=== PATIENT | male | born 1990 | race Caucasian/White ===

== ENCOUNTER → 2017-02-05 | Outpatient (REF) | payer MEDICARE, OTHER, MEDICAID | LOC: M LAB REF 16:28 | PROVIDERS: ATTEND Physician Assistant | DX: D03.72 Melanoma in situ of left lower limb, including hip (principal) ==

== ENCOUNTER → 2017-03-01 | Outpatient (REF) | payer MEDICARE, OTHER, MEDICAID | LOC: M LAB REF 11:28 | PROVIDERS: ATTEND Internal Medicine Hematology & Oncology | DX: C43.9 Malignant melanoma of skin, unspecified (principal) ==

== ENCOUNTER → 2017-05-20 | Outpatient (CLI) | payer MEDICARE ==
[2017-05-20 11:42] LABS: EOS # 0.4 K/mm3 (0.0-0.50); EOS % 7.7 % (0.0-3.0); LARGE UNSTAINED CELL # 0.1 K/mm3 (0.0-0.4); LARGE UNSTAINED CELL % 2.6 % (0.0-4.0); LYMPH # 1.7 K/mm3 (1.5-6.5); LYMPH % 31.8 % (24.0-44.0); MEAN CORPUSCULAR HEMOGLOBIN 31.2 pg (27.0-33.0); MEAN CORPUSCULAR HGB CONC 35.9 g/dl (32.0-36.5); MEAN CORPUSCULAR VOLUME 86.7 fl (80.0-96.0); MONO # 0.4 K/mm3 (0.0-0.8); MONO % 6.9 % (0.0-5.0); NEUTROPHILS # 2.6 K/mm3 (1.8-7.7); PLATELET COUNT, AUTOMATED 199 k/mm3 (150-450); RED CELL DISTRIBUTION WIDTH 12.1 % (11.5-14.5); WHITE BLOOD COUNT 5.2 K/mm3 (4.0-10.0)
[2017-05-20 11:57] LABS: ANION GAP 5 MEQ/L (8-16); BLOOD UREA NITROGEN 9 MG/DL (7-18); CALCIUM LEVEL 8.9 MG/DL (8.5-10.1); CARBON DIOXIDE LEVEL 30 MEQ/L (21-32); CHLORIDE LEVEL 106 MEQ/L (98-107); CREATININE FOR GFR 0.98 MG/DL (0.70-1.30); GLOMERULAR FILTRATION RATE > 60.0 (>60); GLUCOSE, FASTING 91 MG/DL (70-105); POTASSIUM SERUM 4.1 MEQ/L (3.5-5.1); SODIUM LEVEL 141 MEQ/L (136-145)
== END ==
LOC: M LAB 10:33
PROVIDERS: ATTEND Specialist
DX: C43.72 Malignant melanoma of left lower limb, including hip (principal)

== ENCOUNTER → 2017-08-12 | Outpatient (REF) | payer MEDICARE, MEDICAID | LOC: M LAB REF 14:04 | PROVIDERS: ATTEND Physician Assistant | DX: J11.1 Influenza due to unidentified influenza virus with other respiratory manifestations (principal) ==

== ENCOUNTER 2017-09-28 22:21 | Emergency (ER) | payer MEDICARE, MEDICAID ==
[2017-09-28 22:59] LABS: HEMATOCRIT 37.3 % (42.0-52.0); HEMOGLOBIN 13.2 g/dl (14.0-18.0); MEAN CORPUSCULAR HEMOGLOBIN 29.9 pg (27.0-33.0); MEAN CORPUSCULAR HGB CONC 35.4 g/dl (32.0-36.5); MEAN CORPUSCULAR VOLUME 84.4 fl (80.0-96.0); PLATELET COUNT, AUTOMATED 105 10^3/uL (150-450); RED BLOOD COUNT 4.42 10^6/uL (4.30-6.10); RED CELL DISTRIBUTION WIDTH 11.9 % (11.5-14.5)
[2017-09-28] MEDS: AZITHROMYCIN 250 MG TAB PO ×2 (23:19)
== END 2017-09-28 23:31 | disposition home or self-care (01) ==
LOC: M ED 23:31
DX: J40 Bronchitis, not specified as acute or chronic (principal); C43.9 Malignant melanoma of skin, unspecified; J45.909 Unspecified asthma, uncomplicated; Z87.891 Personal history of nicotine dependence; Z79.899 Other long term (current) drug therapy
CPT/HCPCS: 71046

== ENCOUNTER → 2017-09-28 | Outpatient (REF) | payer MEDICARE, MEDICAID | LOC: M LAB REF 11:28 | DX: R50.9 Fever, unspecified (principal) | CPT/HCPCS: 87804 ==

== ENCOUNTER 2018-01-29 22:40 | Emergency (ER) | payer MEDICARE, MEDICAID ==
[2018-01-29] MEDS: IBUPROFEN 600 MG TAB PO (23:30)
[2018-01-29] MEDS: NS 1,000 ML IV (23:46)
[2018-01-29 23:52] LABS: BASO # 0.1 10^3/uL (0.0-0.2); BASO % 0.3 % (0.0-1.0); EOS # 0.1 10^3/uL (0.0-0.50); EOS % 0.6 % (0.0-3.0); HEMOGLOBIN 12.8 g/dl (13.5-17.5); IMMATURE GRANULOCYTE % 0.5 % (0-3.0); LYMPH # 1.1 10^3/uL (1.5-6.5); LYMPH % 7.1 % (24.0-44.0); MEAN CORPUSCULAR HEMOGLOBIN 29.8 pg (27.0-33.0); MEAN CORPUSCULAR HGB CONC 34.6 g/dl (32.0-36.5); MONO # 1.1 10^3/uL (0.0-0.8); MONO % 6.9 % (0.0-5.0); NEUTROPHILS # 13.4 10^3/uL (1.8-7.7); NEUTROPHILS % 84.6 % (36.0-66.0); PLATELET COUNT, AUTOMATED 165 10^3/uL (150-450); RED CELL DISTRIBUTION WIDTH 11.9 % (11.5-14.5); WHITE BLOOD COUNT 15.9 10^3/uL (4.0-10.0)
[2018-01-30 00:17] LABS: ALBUMIN 3.7 GM/DL (3.2-5.2); ALBUMIN/GLOBULIN RATIO 0.97 (1.00-1.93); ALKALINE PHOSPHATASE 118 U/L (45-117); ALT/SGPT 30 U/L (12-78); ANION GAP 7 MEQ/L (8-16); AST/SGOT 21 U/L (7-37); BILIRUBIN,DIRECT 0.1 MG/DL (0.0-0.2); BILIRUBIN,TOTAL 0.3 MG/DL (0.2-1.0); BLOOD UREA NITROGEN 13 MG/DL (7-18); CALCIUM LEVEL 8.3 MG/DL (8.5-10.1); CARBON DIOXIDE LEVEL 24 MEQ/L (21-32); CHLORIDE LEVEL 107 MEQ/L (98-107); CREATININE FOR GFR 1.04 MG/DL (0.70-1.30); GLOMERULAR FILTRATION RATE > 60.0 (>60); GLUCOSE, FASTING 110 MG/DL (70-100); POTASSIUM SERUM 3.6 MEQ/L (3.5-5.1); SODIUM LEVEL 138 MEQ/L (136-145); TOTAL PROTEIN 7.5 GM/DL (6.4-8.2)
[2018-01-30 00:18] LABS: LACTIC ACID SEPSIS PROTOCOL 1.2 MMOL/L (0.4-2.0)
[2018-01-30 01:45] LABS: APPEARANCE, URINE HAZY (CLEAR); BACTERIA, URINE AUTO NEGATIVE (NEGATIVE); BILIRUBIN, URINE AUTO NEGATIVE (NEGATIVE); BLOOD, URINE BLOOD NEGATIVE (NEGATIVE); COLOR, URINE YELLOW (YELLOW); GLUCOSE, URINE (UA) AUTO NEGATIVE (NEGATIVE); KETONE, URINE AUTO NEGATIVE (NEGATIVE); LEUKOCYTE ESTERASE, URINE AUTO NEGATIVE (NEGATIVE); MUCUS, URINE LARGE (NEGATIVE); NITRITE, URINE AUTO NEGATIVE (NEGATIVE); PROTEIN, URINE AUTO 1+ mg/dL (NEGATIVE); RBC, URINE AUTO 4 /HPF (0-3); SPECIFIC GRAVITY URINE AUTO 1.038 (1.002-1.035); SQUAMOUS EPITHELIAL CELL UR AU 0 /HPF (0-6); WBC, URINE AUTO 1 /HPF (0-3)
[2018-01-30] MEDS: CIPROFLOXACIN 500 MG TAB PO (03:00)
== END 2018-01-30 03:05 | disposition home or self-care (01) ==
LOC: M ED 22:40
DX: R50.9 Fever, unspecified (principal); J45.909 Unspecified asthma, uncomplicated; Z79.899 Other long term (current) drug therapy
CPT/HCPCS: 71045

== ENCOUNTER → 2018-02-24 | Outpatient (CLI) | payer MEDICARE, MEDICAID ==
[2018-02-24 09:00] LABS: BASO % 0.7 % (0.0-1.0); EOS # 0.3 10^3/uL (0.0-0.50); EOS % 5.9 % (0.0-3.0); HEMOGLOBIN 13.7 g/dl (13.5-17.5); IMMATURE GRANULOCYTE % 0.2 % (0-3.0); LYMPH # 2.3 10^3/uL (1.5-6.5); LYMPH % 41.3 % (24.0-44.0); MEAN CORPUSCULAR HEMOGLOBIN 29.9 pg (27.0-33.0); MEAN CORPUSCULAR HGB CONC 34.3 g/dl (32.0-36.5); MEAN CORPUSCULAR VOLUME 87.3 fl (80.0-96.0); MONO # 0.7 10^3/uL (0.0-0.8); MONO % 11.8 % (0.0-5.0); NEUTROPHILS # 2.3 10^3/uL (1.8-7.7); NEUTROPHILS % 40.1 % (36.0-66.0); PLATELET COUNT, AUTOMATED 193 10^3/uL (150-450); RED BLOOD COUNT 4.58 10^6/uL (4.30-6.10); WHITE BLOOD COUNT 5.6 10^3/uL (4.0-10.0)
== END ==
LOC: M LAB 08:17
DX: C43.72 Malignant melanoma of left lower limb, including hip (principal)
CPT/HCPCS: 85025

== ENCOUNTER → 2018-04-03 | Outpatient (REF) | payer MEDICARE, MEDICAID ==
[2018-04-03 13:02] LABS: HEMATOCRIT 40.8 % (42.0-52.0); HEMOGLOBIN 13.7 g/dl (13.5-17.5); MEAN CORPUSCULAR HGB CONC 33.6 g/dl (32.0-36.5); MEAN CORPUSCULAR VOLUME 89.5 fl (80.0-96.0); PLATELET COUNT, AUTOMATED 178 10^3/uL (150-450); RED BLOOD COUNT 4.56 10^6/uL (4.30-6.10); RED CELL DISTRIBUTION WIDTH 12.3 % (11.5-14.5); WHITE BLOOD COUNT 5.2 10^3/uL (4.0-10.0)
[2018-04-03 13:14] LABS: TOTAL 25(OH) VITAMIN D 26.3 NG/ML (30.0-100.0)
[2018-04-03 13:23] LABS: ALBUMIN 3.6 GM/DL (3.2-5.2); ALKALINE PHOSPHATASE 137 U/L (45-117); ALT/SGPT 40 U/L (12-78); ANION GAP 6 MEQ/L (8-16); AST/SGOT 26 U/L (7-37); BILIRUBIN,TOTAL 0.2 MG/DL (0.2-1.0); BLOOD UREA NITROGEN 11 MG/DL (7-18); CALCIUM LEVEL 8.4 MG/DL (8.5-10.1); CARBON DIOXIDE LEVEL 27 MEQ/L (21-32); CHLORIDE LEVEL 111 MEQ/L (98-107); CREATININE FOR GFR 0.99 MG/DL (0.70-1.30); FREE T4 0.97 NG/DL (0.76-1.46); GLOMERULAR FILTRATION RATE > 60.0 (>60); GLUCOSE, FASTING 90 MG/DL (70-100); POTASSIUM SERUM 4.2 MEQ/L (3.5-5.1); SODIUM LEVEL 144 MEQ/L (136-145); TOTAL PROTEIN 7.6 GM/DL (6.4-8.2)
[2018-04-04 10:29] LABS: HEPATITIS C VIRUS ABY INDEX 0.3 INDEX (<0.8)
[2018-04-04 10:30] LABS: HIV 1&2 SCREEN CENTAUR NEGATIVE (NEGATIVE)
== END ==
LOC: M SFHCPLAZ 08:37
DX: C43.72 Malignant melanoma of left lower limb, including hip (principal); Z11.59 Encounter for screening for other viral diseases; Z11.4 Encounter for screening for human immunodeficiency virus [HIV]; R74.8 Abnormal levels of other serum enzymes; F32.9 Major depressive disorder, single episode, unspecified; H61.23 Impacted cerumen, bilateral; Z68.33 Body mass index [BMI] 33.0-33.9, adult
CPT/HCPCS: 84443

== ENCOUNTER → 2018-05-05 | Outpatient (REF) | payer MEDICARE, MEDICAID | LOC: M SFHCPLAZ 05-06 11:48 | DX: L02.91 Cutaneous abscess, unspecified (principal) | CPT/HCPCS: 87186 ==

== ENCOUNTER → 2018-11-05 | Outpatient (REF) | payer MEDICARE, MEDICAID ==
[~2018-11-05] MED LIST: ALBU83IN INH; CIPR-249 PO; MEKINIST PO; TAFINLAR PO; ZITHTAB PO
[2018-11-05 12:29] LABS: ALBUMIN 3.9 GM/DL (3.2-5.2); ALT/SGPT 35 U/L (12-78); BILIRUBIN,TOTAL 0.3 MG/DL (0.2-1.0); BLOOD UREA NITROGEN 10 MG/DL (7-18); CALCIUM LEVEL 8.9 MG/DL (8.5-10.1); CARBON DIOXIDE LEVEL 27 MEQ/L (21-32); CHLORIDE LEVEL 106 MEQ/L (98-107); CREATININE FOR GFR 0.98 MG/DL (0.70-1.30); GLOMERULAR FILTRATION RATE > 60.0 (>60); GLUCOSE, FASTING 87 MG/DL (70-100); POTASSIUM SERUM 4.2 MEQ/L (3.5-5.1); SODIUM LEVEL 139 MEQ/L (136-145); TOTAL 25(OH) VITAMIN D 27.9 NG/ML (30.0-100.0); TOTAL PROTEIN 7.6 GM/DL (6.4-8.2)
== END ==
LOC: M SFHCPLAZ 09:45
PROVIDERS: ATTEND Physician Assistant
DX: R74.8 Abnormal levels of other serum enzymes (principal); E55.9 Vitamin D deficiency, unspecified; E66.9 Obesity, unspecified; Z68.35 Body mass index [BMI] 35.0-35.9, adult
CPT/HCPCS: 36415; 80053; 82306; G0463

== ENCOUNTER 2018-11-24 09:11 | Outpatient (RCR) | payer MEDICARE, MEDICAID | END 2018-12-07 | LOC: M PT 09:11 | PROVIDERS: ATTEND Physician Assistant | DX: Z51.89 Encounter for other specified aftercare (principal); R10.32 Left lower quadrant pain ==

== ENCOUNTER 2018-12-23 10:37 | Outpatient (RCR) | payer MEDICARE, MEDICAID | END 2019-01-06 | LOC: M PT 10:37 | PROVIDERS: ATTEND Physician Assistant | DX: R10.32 Left lower quadrant pain (principal) ==

== ENCOUNTER 2019-01-29 08:35 | Emergency (ER) | payer MEDICARE, MEDICAID ==
[~2019-01-29] VITALS: Ht 180.3 cm; Wt 104.2 kg
[2019-01-29] MEDS ORDERED: NS 1,000 ML IV ONE ×2 (09:00→10:00)
[2019-01-29] MEDS ORDERED: MORPHINE 2 MG/ML 1ML SYRINGE (J2270) IV ONE (09:00)
[2019-01-29] MEDS ORDERED: ONDANSETRON 4MG/2ML VIAL (J2405) IV ONE (09:00)
[2019-01-29 09:25] LABS: BASO # 0.1 10^3/uL (0.0-0.2); BASO % 0.9 % (0.0-1.0); EOS # 0.2 10^3/uL (0.0-0.50); EOS % 3.4 % (0.0-3.0); HEMATOCRIT 40.7 % (42.0-52.0); HEMOGLOBIN 13.8 g/dl (13.5-17.5); LYMPH # 1.9 10^3/uL (1.5-6.5); LYMPH % 28.6 % (24.0-44.0); MEAN CORPUSCULAR HEMOGLOBIN 29.7 pg (27.0-33.0); MEAN CORPUSCULAR HGB CONC 33.9 g/dl (32.0-36.5); MEAN CORPUSCULAR VOLUME 87.5 fl (80.0-96.0); MONO # 0.4 10^3/uL (0.0-0.8); MONO % 5.5 % (0.0-5.0); NEUTROPHILS # 4.1 10^3/uL (1.8-7.7); NEUTROPHILS % 61.3 % (36.0-66.0); PLATELET COUNT, AUTOMATED 203 10^3/uL (150-450); RED BLOOD COUNT 4.65 10^6/uL (4.30-6.10); WHITE BLOOD COUNT 6.7 10^3/uL (4.0-10.0)
--- NOTE | 2019-01-29 09:57 | REP ---
Clinical: Right flank pain. Technique: Real time dumont scale ultrasound examination using curved array transducer. Findings: Right kidney measures 12.1 x 6.0 x 6.9 cm with mild hydronephrosis. No nephrolithiasis, renal cystic or mass lesion appreciated. Left kidney measures 10.9 x 4.9 x 6.0 cm without hydronephrosis, cystic or renal mass lesion. 5 mm nonobstructing calculus in the left lower pole cannot be excluded. A complex 2.9 x 2.4 x 2.5 cm cyst/mass is identified superior to the right kidney possibly adrenal adenoma. Impression: 1. Mild right hydronephrosis. 2. 2.9 cm mass superior to the right kidney possibly representing an adrenal lesion. 3. 5 mm nonobstructing left renal calculus. Electronically Signed by Sanket Lovett MD 01/29/2019 09:47 A
[2019-01-29] MEDS ORDERED: TAMSULOSIN 0.4 MG CAP PO ONE (10:00)
[2019-01-29 10:01] LABS: ALBUMIN 3.7 GM/DL (3.2-5.2); ALT/SGPT 36 U/L (12-78); BILIRUBIN,DIRECT < 0.1 MG/DL (0.0-0.2); BILIRUBIN,TOTAL 0.4 MG/DL (0.2-1.0); LIPASE 131 U/L (73-393); TOTAL PROTEIN 8.2 GM/DL (6.4-8.2)
[2019-01-29] MEDS ORDERED: ISOVUE-370 76% 100ML VIAL (Q9967) As Ordered ONE (10:08)
--- NOTE | 2019-01-29 10:54 | REP ---
Clinical: Hydronephrosis. Technique: Axial precontrast, contrast enhanced, and delayed images of the abdomen and pelvis using 100 ml Isovue 370 intravenous contrast material with coronal and sagittal re-formations. Findings: Mild right hydroureteronephrosis with minimal periureteral stranding is appreciated with a 1 mm calculus in the dependent portion of the bladder inseparable from the ureterovesical junction. Clinical correlation is recommended as findings may represent partially obstructing UVJ stone versus recently passed stone. Right kidney along with the left kidney at, left ureter and bladder appear normal. Liver, spleen, pancreas, gallbladder, bilateral adrenal glands are normal. The enteric system is without obstruction or acute inflammatory process. Pelvis demonstrates normal bladder and age appropriate prostate/seminal vesicles. No ascites. No free air. No adenopathy. Abdominal aorta without aneurysm or dissection. Musculoskeletal structures intact. Impression: 1. Mild right-sided obstructive uropathy with 1 mm calculus as described above. Findings suggest acute UVJ obstruction versus recently passed right ureteral stone. Correlation with physical examination recommended. Remainder of the urinary tract system is normal. 2. No further acute abdominopelvic pathology appreciated. Electronically Signed by Sanket Lovett MD 01/29/2019 10:45 A
[2019-01-29] MEDS ORDERED: KETO10TAB PO (11:17)
[2019-01-29] MEDS ORDERED: ONDA4TAB6 PO (11:17)
[2019-01-29 11:28] VITALS: BP 109/59
== END 2019-01-29 11:42 | disposition home or self-care (01) ==
LOC: M ED 08:35
DX: N20.1 Calculus of ureter (principal); R11.2 Nausea with vomiting, unspecified; Z85.820 Personal history of malignant melanoma of skin; F17.200 Nicotine dependence, unspecified, uncomplicated; Z79.899 Other long term (current) drug therapy; Z79.2 Long term (current) use of antibiotics
CPT/HCPCS: 74178; 76775; 80047; 80076; 81001; 83605; 83690; 85025; 96374; 96375; 99284; J2270; J2405; Q9967

== ENCOUNTER → 2021-08-16 | Outpatient (CLI) | payer MEDICARE, MEDICAID ==
[~2021-08-16] MED LIST changes: +KETO10TAB PO; +ONDA4TAB6 PO
--- NOTE | 2021-08-16 13:01 | REP ---
INDICATION: WORSENING PAIN IN THIGH ? DVT VS LYMPHNODE COMPARISON: None. TECHNIQUE: Real time compression and duplex Doppler interrogation of the left lower extremity deep venous system is performed, including the right common femoral vein.Compression of the left peroneal and posterior tibial veins is performed. FINDINGS: The left common femoral, superficial femoral and popliteal veins are fully compressible with transducer pressure and demonstrate normal spontaneous and phasic flow, without evidence of deep venous thrombosis.The right common femoral vein demonstrates no thrombus.The visualized left peroneal and posterior tibial veins demonstrate no thrombus. In the distal left thigh soft tissues there is a solid soft tissue nodule measuring 2.0 x 1.4 x 1.7 centimeters. Two mildly enlarged left inguinal lymph nodes are seen measuring 13 x 6 x 16 millimeters and 16 x 11 x 27 millimeters. IMPRESSION: No evidence of deep venous thrombosis of the left lower extremity femoral popliteal venous system.No thrombus in the visualized left peroneal and posterior tibial veins. In the distal left thigh soft tissues there is a solid soft tissue nodule measuring 2.0 x 1.4 x 1.7 centimeters. Two mildly enlarged left inguinal lymph nodes are seen measuring 13 x 6 x 16 millimeters and 16 x 11 x 27 millimeters. <Electronically signed by Raymond Muñoz > 08/16/21 [id number]
== END ==
LOC: M RAD 12:01
PROVIDERS: ATTEND Internal Medicine Hematology & Oncology
DX: R59.0 Localized enlarged lymph nodes (principal); R22.42 Localized swelling, mass and lump, left lower limb; C43.72 Malignant melanoma of left lower limb, including hip; M79.605 Pain in left leg

== ENCOUNTER → 2021-09-22 | Outpatient (CLI) | payer MEDICARE, MEDICAID ==
[2021-09-22 13:27] LABS: ALBUMIN 2.9 GM/DL (3.2-5.2); ALT/SGPT 219 U/L (12-78); BILIRUBIN,TOTAL 0.2 MG/DL (0.2-1.0); BLOOD UREA NITROGEN 8 MG/DL (7-18); CALCIUM LEVEL 8.6 MG/DL (8.5-10.1); CARBON DIOXIDE LEVEL 28 MEQ/L (21-32); CHLORIDE LEVEL 109 MEQ/L (98-107); CREATININE FOR GFR 0.83 MG/DL (0.70-1.30); GLOMERULAR FILTRATION RATE > 60.0 (>60); GLUCOSE, FASTING 98 MG/DL (70-100); POTASSIUM SERUM 3.9 MEQ/L (3.5-5.1); SODIUM LEVEL 141 MEQ/L (136-145); TOTAL PROTEIN 6.4 GM/DL (6.4-8.2)
== END ==
LOC: M LAB 12:09
PROVIDERS: ATTEND Internal Medicine Hematology & Oncology
DX: C43.72 Malignant melanoma of left lower limb, including hip (principal)

== ENCOUNTER → 2021-10-21 | Outpatient (CLI) | payer MEDICARE ==
[2021-10-21 14:11] LABS: BASO # 0.1 10^3/uL (0.0-0.2); BASO % 0.9 % (0.0-1.0); EOS # 0.3 10^3/uL (0.0-0.5); EOS % 3.9 % (0.0-3.0); HEMATOCRIT 44.7 % (42.0-52.0); HEMOGLOBIN 14.5 g/dl (13.5-17.5); LYMPH # 2.6 10^3/uL (1.5-5.0); LYMPH % 33.5 % (24.0-44.0); MEAN CORPUSCULAR HEMOGLOBIN 28.5 pg (27.0-33.0); MEAN CORPUSCULAR HGB CONC 32.4 g/dl (32.0-36.5); MEAN CORPUSCULAR VOLUME 87.8 fl (80.0-96.0); MONO # 0.6 10^3/uL (0.0-0.8); MONO % 8.3 % (2.0-8.0); NEUTROPHILS # 4.1 10^3/uL (1.5-8.5); NEUTROPHILS % 53.1 % (36.0-66.0); PLATELET COUNT, AUTOMATED 226 10^3/uL (150-450); RED BLOOD COUNT 5.09 10^6/uL (4.30-6.10); WHITE BLOOD COUNT 7.7 10^3/uL (4.0-10.0)
[2021-10-21 14:37] LABS: ALBUMIN 3.3 GM/DL (3.2-5.2); ALT/SGPT 377 U/L (12-78); BILIRUBIN,TOTAL 0.4 MG/DL (0.2-1.0); BLOOD UREA NITROGEN 8 MG/DL (7-18); CALCIUM LEVEL 8.7 MG/DL (8.5-10.1); CARBON DIOXIDE LEVEL 27 MEQ/L (21-32); CHLORIDE LEVEL 109 MEQ/L (98-107); CREATININE FOR GFR 1.07 MG/DL (0.70-1.30); GLOMERULAR FILTRATION RATE > 60.0 (>60); GLUCOSE, FASTING 113 MG/DL (70-100); POTASSIUM SERUM 3.6 MEQ/L (3.5-5.1); SODIUM LEVEL 141 MEQ/L (136-145); TOTAL PROTEIN 7.2 GM/DL (6.4-8.2)
== END ==
LOC: M LAB 13:40
PROVIDERS: ATTEND Nurse Practitioner
DX: C43.72 Malignant melanoma of left lower limb, including hip (principal)

== ENCOUNTER 2021-11-22 10:53 | Emergency (ER) | payer MEDICARE, MEDICAID ==
[~2021-11-22] VITALS: Ht 182.9 cm; Wt 108.6 kg
[2021-11-22] MEDS ORDERED: NS 1,000 ML IV ONE (12:05)
[2021-11-22] MEDS ORDERED: ONDANSETRON 4MG/2ML VIAL IV ONE (12:05)
[2021-11-22] MEDS ORDERED: ONDANSETRON 4MG/2ML VIAL As Ordered ONE (12:08)
[2021-11-22 12:36] LABS: BASO # 0.1 10^3/uL (0.0-0.2); BASO % 0.6 % (0.0-1.0); EOS # 0.2 10^3/uL (0.0-0.5); EOS % 2.8 % (0.0-3.0); HEMATOCRIT 40.9 % (42.0-52.0); HEMOGLOBIN 13.9 g/dl (13.5-17.5); LYMPH # 1.1 10^3/uL (1.5-5.0); LYMPH % 13.6 % (24.0-44.0); MEAN CORPUSCULAR HEMOGLOBIN 28.6 pg (27.0-33.0); MEAN CORPUSCULAR VOLUME 84.2 fl (80.0-96.0); MONO # 0.7 10^3/uL (0.0-0.8); MONO % 8.9 % (2.0-8.0); NEUTROPHILS # 5.7 10^3/uL (1.5-8.5); NEUTROPHILS % 73.8 % (36.0-66.0); PLATELET COUNT, AUTOMATED 212 10^3/uL (150-450); RED BLOOD COUNT 4.86 10^6/uL (4.30-6.10); WHITE BLOOD COUNT 7.8 10^3/uL (4.0-10.0)
[2021-11-22] MEDS ORDERED: OXYC-517 (12:36)
[2021-11-22] MEDS ORDERED: VENTAER INH (12:36)
[2021-11-22] MEDS ORDERED: SERT50TA29 PO (12:36)
[2021-11-22 12:57] LABS: ALBUMIN 3.2 GM/DL (3.2-5.2); ALT/SGPT 41 U/L (12-78); BILIRUBIN,DIRECT 0.1 MG/DL (0.0-0.2); BILIRUBIN,TOTAL 0.6 MG/DL (0.2-1.0); BLOOD UREA NITROGEN 13 MG/DL (7-18); CALCIUM LEVEL 8.6 MG/DL (8.5-10.1); CARBON DIOXIDE LEVEL 26 MEQ/L (21-32); CHLORIDE LEVEL 108 MEQ/L (98-107); CREATININE FOR GFR 0.97 MG/DL (0.70-1.30); GLOMERULAR FILTRATION RATE > 60.0 (>60); GLUCOSE, FASTING 96 MG/DL (70-100); LIPASE 91 U/L (73-393); MAGNESIUM LEVEL 2.1 MG/DL (1.8-2.4); POTASSIUM SERUM 3.9 MEQ/L (3.5-5.1); SODIUM LEVEL 139 MEQ/L (136-145); TOTAL PROTEIN 6.7 GM/DL (6.4-8.2)
[2021-11-22] MEDS ORDERED: PROHANCE 279.3MG/ML 5ML VIAL As Ordered ONE (17:14)
[2021-11-22] MEDS ORDERED: PROHANCE 279.3MG/ML 15ML VIAL As Ordered ONE (17:15)
[2021-11-22 19:42] VITALS: BP 126/77
== END 2021-11-22 20:02 | disposition home or self-care (01) ==
LOC: M ED 10:53
DX: R11.2 Nausea with vomiting, unspecified (principal); R19.7 Diarrhea, unspecified; J45.909 Unspecified asthma, uncomplicated; Z85.820 Personal history of malignant melanoma of skin; Z86.73 Personal history of transient ischemic attack (TIA), and cerebral infarction without residual deficits; Z92.21 Personal history of antineoplastic chemotherapy; F17.210 Nicotine dependence, cigarettes, uncomplicated
CPT/HCPCS: 70450; 70553; 80048; 80076; 83605; 83690; 83735; 85025; 87040; 93005; 93041; 94760; 96361; 96374; 99285; A9576; J2405

== ENCOUNTER → 2022-01-19 | Outpatient (CLI) | payer MEDICARE, MEDICAID ==
[~2022-01-19] MED LIST changes: +OXYC-517; +PROHANCE 279.3MG/ML 15ML VIAL As Ordered ONE; +PROHANCE 279.3MG/ML 5ML VIAL As Ordered ONE; +SERT50TA29 PO; +VENTAER INH
== END ==
LOC: M RAD 08:05
PROVIDERS: ATTEND Internal Medicine Hematology & Oncology
DX: C43.72 Malignant melanoma of left lower limb, including hip (principal); G91.9 Hydrocephalus, unspecified
CPT/HCPCS: 70553; A9576

== ENCOUNTER 2022-07-16 12:09 | Emergency (ER) | payer MEDICARE, MEDICAID ==
[~2022-07-16] VITALS: Ht 182.9 cm; Wt 79.0 kg
[~2022-07-16 12:09] MED LIST changes: +ALBU2.5V10 INH; -ALBU83IN INH; -PROHANCE 279.3MG/ML 15ML VIAL As Ordered ONE; -PROHANCE 279.3MG/ML 5ML VIAL As Ordered ONE
[2022-07-16] MEDS ORDERED: ONDA4TAB6 PO (14:08)
[2022-07-16] MEDS ORDERED: SERT-141 PO (14:12)
[2022-07-16] MEDS ORDERED: METOCLOPRAMIDE INJ 10MG/2ML VIAL (J2765 PER 1) IV ONE (14:55)
[2022-07-16] MEDS ORDERED: NS 1,000 ML IV ONE (14:55)
[2022-07-16 15:48] LABS: BASO % 0.4 % (0.0-1.0); EOS # 0.2 10^3/uL (0.0-0.5); EOS % 6.3 % (0.0-3.0); HEMATOCRIT 39.6 % (42.0-52.0); HEMOGLOBIN 13.1 g/dl (13.5-17.5); MEAN CORPUSCULAR HEMOGLOBIN 28.4 pg (27.0-33.0); MEAN CORPUSCULAR HGB CONC 33.1 g/dl (32.0-36.5); MEAN CORPUSCULAR VOLUME 85.7 fl (80.0-96.0); MONO # 0.3 10^3/uL (0.0-0.8); MONO % 12.5 % (2.0-8.0); NEUTROPHILS # 1.2 10^3/uL (1.5-8.5); NEUTROPHILS % 44.8 % (36.0-66.0); PLATELET COUNT, AUTOMATED 126 10^3/uL (150-450); RED BLOOD COUNT 4.62 10^6/uL (4.30-6.10); WHITE BLOOD COUNT 2.7 10^3/uL (4.0-10.0)
[2022-07-16 16:28] LABS: ALBUMIN 3.7 GM/DL (3.2-5.2); BILIRUBIN,DIRECT 0.2 MG/DL (0.0-0.2); BILIRUBIN,TOTAL 0.6 MG/DL (0.2-1.0); TOTAL PROTEIN 7.4 GM/DL (6.4-8.2)
[2022-07-16] MEDS ORDERED: REGL10TA6 PO (17:03)
[2022-07-16 17:15] VITALS: BP 117/69
== END 2022-07-16 17:17 | disposition home or self-care (01) ==
LOC: M ED 12:09
DX: U07.1 COVID-19 (principal); C43.9 Malignant melanoma of skin, unspecified; J45.909 Unspecified asthma, uncomplicated; Z86.73 Personal history of transient ischemic attack (TIA), and cerebral infarction without residual deficits; R93.0 Abnormal findings on diagnostic imaging of skull and head, not elsewhere classified; Z79.899 Other long term (current) drug therapy
CPT/HCPCS: 70450; 74021; 80047; 80076; 83690; 85025; 87486; 87581; 87633; 87798; 96361; 96374; 99284; J2765

== ENCOUNTER → 2023-12-19 | Outpatient (CLI) | payer MEDICARE, MEDICAID ==
[~2023-12-19] MED LIST changes: +PROHANCE 279.3MG/ML 15ML VIAL As Ordered ONE; +REGL10TA6 PO; +SERT-141 PO
== END ==
LOC: M RAD 14:23
PROVIDERS: ATTEND Internal Medicine Hematology & Oncology
DX: C43.72 Malignant melanoma of left lower limb, including hip (principal); G31.9 Degenerative disease of nervous system, unspecified; J32.0 Chronic maxillary sinusitis
CPT/HCPCS: 70553; A9576

== ENCOUNTER → 2024-01-31 | Outpatient (CLI) | payer MEDICARE, MEDICAID | LOC: M RAD 07:38 | PROVIDERS: ATTEND Internal Medicine Hematology & Oncology | DX: C43.72 Malignant melanoma of left lower limb, including hip (principal); J32.0 Chronic maxillary sinusitis | CPT/HCPCS: 70553; A9576 ==

== ENCOUNTER → 2024-02-18 | Outpatient (CLI) | payer MEDICARE, MEDICAID ==
[~2024-02-18] MED LIST changes: +ONDA-282 PO; -ONDA4TAB6 PO; -PROHANCE 279.3MG/ML 15ML VIAL As Ordered ONE
== END ==
LOC: M CARPUL 11:00
PROVIDERS: ATTEND Internal Medicine Hematology & Oncology
DX: C43.72 Malignant melanoma of left lower limb, including hip (principal); Z79.69 Long term (current) use of other immunomodulators and immunosuppressants; I08.3 Combined rheumatic disorders of mitral, aortic and tricuspid valves

== ENCOUNTER 2024-02-24 18:59 | Emergency (ER) | payer MEDICARE, MEDICAID ==
[~2024-02-24] VITALS: Ht 182.9 cm; Wt 63.6 kg
[2024-02-24] MEDS ORDERED: SERT50TA29 PO (19:27)
[2024-02-24] MEDS ORDERED: SERT25TA21 PO (19:27)
[2024-02-24] MEDS ORDERED: LEVO-86 PO (19:29)
[2024-02-24 19:40] LABS: BASO # 0.1 10^3/uL (0.0-0.2); BASO % 0.8 % (0.0-1.0); EOS # 0.6 10^3/uL (0.0-0.5); EOS % 9.6 % (0.0-3.0); HEMATOCRIT 26.2 % (42.0-52.0); HEMOGLOBIN 8.5 g/dl (13.5-17.5); LYMPH # 2.3 10^3/uL (1.5-5.0); LYMPH % 37.5 % (24.0-44.0); MEAN CORPUSCULAR HEMOGLOBIN 27.6 pg (27.0-33.0); MEAN CORPUSCULAR HGB CONC 32.4 g/dl (32.0-36.5); MEAN CORPUSCULAR VOLUME 85.1 fl (80.0-96.0); MONO # 0.5 10^3/uL (0.0-0.8); MONO % 8.9 % (2.0-8.0); NEUTROPHILS # 2.6 10^3/uL (1.5-8.5); PLATELET COUNT, AUTOMATED 270 10^3/uL (150-450); RED BLOOD COUNT 3.08 10^6/uL (4.30-6.10); WHITE BLOOD COUNT 6.1 10^3/uL (4.0-10.0)
[2024-02-24] MEDS: NS 1,910 ML in IV 1 EA IV ONE (19:52)
[2024-02-24 20:07] LABS: CK-MB VALUE MASS < 1.0 NG/ML (<3.6)
[2024-02-24 20:09] LABS: BLOOD UREA NITROGEN 8 MG/DL (9-23); CALCIUM LEVEL 7.9 MG/DL (8.5-10.1); CARBON DIOXIDE LEVEL 27 MMOL/L (20-31); CHLORIDE LEVEL 108 MMOL/L (98-107); CPK CREATINE PHOSPHOKINASE 96 U/L (46-171); CREATININE FOR GFR 0.66 MG/DL (0.70-1.30); GLOMERULAR FILTRATION RATE > 60.0 (>60); GLUCOSE, FASTING 103 MG/DL (60-100); MAGNESIUM LEVEL 1.9 MG/DL (1.8-2.4); MB/CK RELATIVE INDEX 1.04 (< OR =4); POTASSIUM SERUM 3.9 MMOL/L (3.5-5.1); SODIUM LEVEL 139 MMOL/L (136-145)
[2024-02-24 20:11] LABS: THYROID STIMULATING HORMONE 4.771 uIU/ML (0.55-4.78)
[2024-02-24] MEDS ORDERED: ISOVUE-370 76% 100ML VIAL As Ordered ONE (20:26)
[2024-02-24 20:29] LABS: VENOUS BASE EXCESS -2.3 (-2.0-2.0); VENOUS HCO3 24.8 MMOL/L (23.0-27.0); VENOUS O2 SATURATION 46.1 % (60.0-80.0); VENOUS PARTIAL PRESSURE CO2 54.3 mmHg (38.0-50.0); VENOUS PARTIAL PRESSURE O2 28.5 mmHg (30.0-50.0); VENOUS PH 7.277 UNITS (7.330-7.430); VENOUS STANDARD HCO3 21.8 MMOL/L; VENOUS TOTAL CO2 26.4 MMOL/L (24.0-28.0)
[2024-02-24 20:43] LABS: FREE T4 0.67 NG/DL (0.89-1.76)
[2024-02-24 22:01] LABS: AMPHETAMINES LEVEL URINE NEGATIVE (NEGATIVE); BARBITURATES URINE NEGATIVE (NEGATIVE); BENZODIAZEPINES URINE NEGATIVE (NEGATIVE); CANNABINOIDS URINE NEGATIVE (NEGATIVE); COCAINE METABOLITE URINE NEGATIVE (NEGATIVE); METHADONE URINE NEGATIVE (NEGATIVE); OPIATES URINE NEGATIVE (NEGATIVE); PHENCYCLIDINE URINE NEGATIVE (NEGATIVE)
[2024-02-24 22:24] LABS: ETHYL ALCOHOL (ETHANOL) < 0.003 % (0.000-0.010)
[2024-02-24] MEDS ORDERED: HOLTER MONITOR XX (22:56)
[2024-02-24 23:45] VITALS: BP 95/54; TEMP 96.2; O2SAT 100
== END 2024-02-24 23:27 | disposition home or self-care (01) ==
LOC: M ED 18:59 → EDBD 18:59 → M ED 23:27
DX: R55 Syncope and collapse (principal); D64.9 Anemia, unspecified; J45.909 Unspecified asthma, uncomplicated; E03.9 Hypothyroidism, unspecified; Z85.820 Personal history of malignant melanoma of skin; Z92.21 Personal history of antineoplastic chemotherapy; Z79.899 Other long term (current) drug therapy
CPT/HCPCS: 70450; 70486; 71275; 72125; 74177; 80048; 80307; 82077; 82550; 82553; 82803; 83735; 84439; 84443; 84484; 85025; 86850; 86900; 86901; 93005; 93041; 94760; 96360; 96361; 99285; Q9967

== ENCOUNTER 2024-05-30 15:29 | Emergency (ER) | payer MEDICARE, MEDICAID ==
[~2024-05-30] VITALS: Ht 185.4 cm; Wt 70.0 kg
[~2024-05-30 15:29] MED LIST changes: +HOLTER MONITOR XX; +LEVO-86 PO; +SERT25TA21 PO
[2024-05-30] MEDS ORDERED: BRAF75CA (15:41)
[2024-05-30] MEDS ORDERED: VIBE75TA (15:41)
[2024-05-30] MEDS ORDERED: MEKT15TA (15:41)
[2024-05-30] MEDS ORDERED: LEVO137T2 (15:44)
[2024-05-30] MEDS ORDERED: SERT25TA85 PO (15:44)
[2024-05-30 15:50] VITALS: TEMP 98.6
[2024-05-30] MEDS: NS 1,000 ML IV ONE (16:30)
[2024-05-30 16:42] LABS: BASO # 0.1 10^3/uL (0.0-0.2); BASO % 1.4 % (0.0-1.0); EOS # 0.2 10^3/uL (0.0-0.5); EOS % 3.5 % (0.0-3.0); HEMATOCRIT 30.6 % (42.0-52.0); HEMOGLOBIN 9.8 g/dl (13.5-17.5); LYMPH # 2.1 10^3/uL (1.5-5.0); LYMPH % 33.3 % (24.0-44.0); MEAN CORPUSCULAR HEMOGLOBIN 26.5 pg (27.0-33.0); MEAN CORPUSCULAR VOLUME 82.7 fl (80.0-96.0); MONO # 0.6 10^3/uL (0.0-0.8); MONO % 9.8 % (2.0-8.0); NEUTROPHILS # 3.2 10^3/uL (1.5-8.5); NEUTROPHILS % 51.8 % (36.0-66.0); PLATELET COUNT, AUTOMATED 377 10^3/uL (150-450); WHITE BLOOD COUNT 6.2 10^3/uL (4.0-10.0)
[2024-05-30 16:50] LABS: ALBUMIN 2.4 G/DL (3.2-5.2); ALKALINE PHOSPHATASE 123 U/L (46-116); ALT/SGPT 22 U/L (7.0-40); AST/SGOT 29 U/L (<34); BILIRUBIN,DIRECT 0.2 MG/DL (<0.4); BILIRUBIN,TOTAL 0.4 MG/DL (0.3-1.2); BLOOD UREA NITROGEN 7 MG/DL (9-23); CALCIUM LEVEL 8.2 MG/DL (8.5-10.1); CARBON DIOXIDE LEVEL 26 MMOL/L (20-31); CHLORIDE LEVEL 103 MMOL/L (98-107); GLOMERULAR FILTRATION RATE > 60.0 (>60); GLUCOSE, FASTING 98 MG/DL (60-100); POTASSIUM SERUM 3.7 MMOL/L (3.5-5.1); SODIUM LEVEL 135 MMOL/L (136-145); TOTAL PROTEIN 7.5 G/DL (5.7-8.2)
[2024-05-30 17:00] LABS: ABG BASE EXCESS -2.8 (-2.0-2.0); ABG HCO3 21.2 MMOL/L (22.0-26.0); ABG O2 SATURATION 98.7 % (95.0-99.0); ABG PARTIAL PRESSURE CO2 33.7 mmHg (35.0-45.0); ABG STANDARD HCO3 22.1 MMOL/L. (22.0-26.0); ABG TOTAL CO2 22.2 MMOL/L (22.0-29.0); ABG pH (ARTERIAL) 7.416 UNITS (7.350-7.450)
[2024-05-30 20:05] LABS: APPEARANCE, URINE HAZY (CLEAR); BACTERIA, URINE AUTO NEGATIVE (NEGATIVE); BILIRUBIN, URINE AUTO NEGATIVE (NEGATIVE); BLOOD, URINE BLOOD NEGATIVE (NEGATIVE); COLOR, URINE AMBER (YELLOW); GLUCOSE, URINE (UA) AUTO NEGATIVE (NEGATIVE); KETONE, URINE AUTO 1+ mg/dL (NEGATIVE); LEUKOCYTE ESTERASE, URINE AUTO NEGATIVE (NEGATIVE); MUCUS, URINE SMALL (NEGATIVE); NITRITE, URINE AUTO NEGATIVE (NEGATIVE); PROTEIN, URINE AUTO NEGATIVE (NEGATIVE); RBC, URINE AUTO 1 /HPF (0-3); SPECIFIC GRAVITY URINE AUTO 1.019 (1.002-1.035); SQUAMOUS EPITHELIAL CELL UR AU 0 /HPF (0-6); WBC, URINE AUTO 3 /HPF (0-3)
[2024-05-30 21:03] LABS: Trichomonas vaginalis (AMP) NOT DETECTED (NEGATIVE)
[2024-05-30 21:27] LABS: GC DNA AMPLIFICATION NEGATIVE (NEGATIVE)
[2024-05-30] MEDS ORDERED: LEVO1TAB39 PO (21:32)
[2024-05-30 21:50] VITALS: BP 99/60; O2SAT 100
[2024-05-30] MEDS: LevoFLOXacin 500 MG TABLET PO ONE (21:56)
== END 2024-05-30 22:02 | disposition home or self-care (01) ==
LOC: M ED 15:29
DX: N45.1 Epididymitis (principal); N43.3 Hydrocele, unspecified

== ENCOUNTER → 2024-06-16 | Outpatient (CLI) | payer MEDICARE, MEDICAID ==
[~2024-06-16] MED LIST changes: +BRAF75CA; +LEVO137T2; +LEVO1TAB39 PO; +MEKT15TA; +SERT25TA85 PO; +VIBE75TA
== END ==
LOC: M PLALAB 13:57
PROVIDERS: ATTEND Physician Assistant Medical
DX: M25.561 Pain in right knee (principal); M25.562 Pain in left knee

== ENCOUNTER → 2024-06-26 | Outpatient (CLI) | payer MEDICARE, MEDICAID ==
[~2024-06-26] MED LIST changes: +ISOVUE-370 76% 100ML VIAL ONE
== END ==
LOC: M PLAIMG 12:57
PROVIDERS: ATTEND Internal Medicine Hematology & Oncology
DX: C43.72 Malignant melanoma of left lower limb, including hip (principal); K76.0 Fatty (change of) liver, not elsewhere classified; R16.0 Hepatomegaly, not elsewhere classified
CPT/HCPCS: 71260; 74177; Q9967

== ENCOUNTER 2024-07-18 12:47 | Inpatient (IN) | payer MEDICARE, MEDICAID ==
[~2024-07-18] VITALS: Ht 177.8 cm; Wt 69.3 kg
[~2024-07-18 12:47] MED LIST changes: -BRAF75CA; +BRAF75CA PO; -ISOVUE-370 76% 100ML VIAL ONE; -LEVO137T2; +LEVO137T2 PO; -MEKT15TA; +MEKT15TA PO; -VIBE75TA; +VIBE75TA PO
[2024-07-18] MEDS: MORPHINE 4 MG/ML 1ML VIAL IV ONE (13:26)
[2024-07-18] MEDS: PIPERACILLIN/TAZOBACTAM SOD 4.5 GM in DEXTROSE 5% (D5W) ADV/MINI-BAG 50 ML IV ONE (13:35)
[2024-07-18] MEDS: ACETAMINOPHEN 325 MG TAB PO ONE (13:36)
[2024-07-18 13:44] LABS: BASO # 0.1 10^3/uL (0.0-0.2); EOS # 0.3 10^3/uL (0.0-0.5); EOS % 3.8 % (0.0-3.0); HEMATOCRIT 27.1 % (42.0-52.0); HEMOGLOBIN 8.6 g/dl (13.5-17.5); LYMPH # 1.8 10^3/uL (1.5-5.0); LYMPH % 25.5 % (24.0-44.0); MEAN CORPUSCULAR HEMOGLOBIN 25.1 pg (27.0-33.0); MEAN CORPUSCULAR HGB CONC 31.7 g/dl (32.0-36.5); MEAN CORPUSCULAR VOLUME 79.2 fl (80.0-96.0); MONO # 0.8 10^3/uL (0.0-0.8); MONO % 10.9 % (2.0-8.0); NEUTROPHILS % 58.4 % (36.0-66.0); PLATELET COUNT, AUTOMATED 334 10^3/uL (150-450); RED BLOOD COUNT 3.42 10^6/uL (4.30-6.10); WHITE BLOOD COUNT 6.9 10^3/uL (4.0-10.0)
[2024-07-18 13:48] LABS: ERYTHROCYTE SEDIMENTATION RATE 51 mm/hr (0-15)
[2024-07-18 14:12] LABS: ALBUMIN 2.3 G/DL (3.2-5.2); ALKALINE PHOSPHATASE 131 U/L (40-129); ALT/SGPT 12 U/L (7.0-40); AST/SGOT 16 U/L (<34); BILIRUBIN,DIRECT 0.2 MG/DL (<0.4); BILIRUBIN,TOTAL 0.4 MG/DL (0.3-1.2); BLOOD UREA NITROGEN 13 MG/DL (9-23); CALCIUM LEVEL 8.9 MG/DL (8.5-10.1); CARBON DIOXIDE LEVEL 27 MMOL/L (20-31); CHLORIDE LEVEL 102 MMOL/L (98-107); CREATININE FOR GFR 0.91 MG/DL (0.70-1.30); GLOMERULAR FILTRATION RATE > 60.0 (>60); GLUCOSE, FASTING 70 MG/DL (60-100); POTASSIUM SERUM 4.3 MMOL/L (3.5-5.1); SODIUM LEVEL 135 MMOL/L (136-145); TOTAL PROTEIN 8.9 G/DL (5.7-8.2)
[2024-07-18 14:14] LABS: SOURCE, BODY FLUID CRYSTALS RT KNEE
[2024-07-18 14:17] LABS: CRYSTALS, BODY FLUID NONE SEEN (NONE SEEN)
[2024-07-18] MEDS ORDERED: VANCOMYCIN HCL 750 MG in IV FLUID PLACE HOLDER 1 EA IV SCH (15:40)
[2024-07-18] MEDS ORDERED: HYDR-4467 PO ×2 (15:47)
[2024-07-18] MEDS ORDERED: ALBU8.5H INH (15:47)
[2024-07-18] MEDS ORDERED: MELO7.5T35 PO (15:47)
[2024-07-18] MEDS ORDERED: HOME MED LIST COMPLETE! XX SCH (15:55)
[2024-07-18] MEDS: cefTRIAXone SOD 2 GM in DEXTROSE 5% (D5W) ADV/MINI-BAG 50 ML IV SCH (16:04)
[2024-07-18] MEDS: diphenhydrAMINE 50MG/ML VIAL IV STA (16:31)
[2024-07-18 16:57] LABS: PERCENT SATURATION 6.3 % (19.7-50.0)
[2024-07-18 17:00] LABS: THYROID STIMULATING HORMONE 13.347 uIU/ML (0.55-4.78)
[2024-07-18 17:01] LABS: FERRITIN 407.8 NG/ML (10.5-307.3); FOLATE 12.34 NG/ML (>5.4)
[2024-07-18 17:15] VITALS: BP 98/69; TEMP 97.3; O2SAT 95
[2024-07-18 17:44] LABS: CORTISOL PM 2.6 UG/DL (3.1-16.7)
[2024-07-18] MEDS: KETOROLAC 30 MG/ML 1ML VIAL IV ONE (18:15)
[2024-07-18] MEDS: VANCOMYCIN 1,250 MG/250 ML IV BAG *LOAD IV ONE (18:15)
[2024-07-18] MEDS ORDERED: HYDROCORTISONE 100MG/2ML VIAL IV SCH (19:00)
[2024-07-18 20:05] VITALS: BP 101/70; TEMP 97.7; O2SAT 97
[2024-07-18] MEDS: DOCUSATE SODIUM 100MG CAPSULE PO SCH (20:13)
[2024-07-18] MEDS: ACETAMINOPHEN 500 MG TAB PO SCH (20:14)
[2024-07-18] MEDS: HYDROCORTISONE 100MG/2ML VIAL IV SCH (20:49)
[2024-07-18] MEDS ORDERED: HYDROCORTISONE 5MG TABLET PO SCH (21:00)
[2024-07-19] MEDS: VANCOMYCIN 1,000MG/200 ML IV BAG IV SCH ×2 (00:56→13:55)
[2024-07-19 04:00] VITALS: BP 92/57; TEMP 97.7; O2SAT 99
[2024-07-19] MEDS: LEVOTHYROXINE 137MCG TABLET (0.137MG) PO SCH (05:11)
[2024-07-19 05:30] VITALS: BP 94/56
[2024-07-19 07:30] LABS: BASO % 1.1 % (0.0-1.0); EOS % 0.3 % (0.0-3.0); HEMATOCRIT 29.3 % (42.0-52.0); HEMOGLOBIN 8.8 g/dl (13.5-17.5); LYMPH # 0.8 10^3/uL (1.5-5.0); LYMPH % 20.1 % (24.0-44.0); MEAN CORPUSCULAR HEMOGLOBIN 24.4 pg (27.0-33.0); MEAN CORPUSCULAR VOLUME 81.4 fl (80.0-96.0); MONO # 0.1 10^3/uL (0.0-0.8); MONO % 1.9 % (2.0-8.0); NEUTROPHILS # 2.9 10^3/uL (1.5-8.5); NEUTROPHILS % 76.1 % (36.0-66.0); PLATELET COUNT, AUTOMATED 318 10^3/uL (150-450); WHITE BLOOD COUNT 3.8 10^3/uL (4.0-10.0)
[2024-07-19 07:48] LABS: VANCOMYCIN LEVEL TROUGH 24.1 UG/ML (10.0-20.0)
[2024-07-19 07:49] LABS: BLOOD UREA NITROGEN 18 MG/DL (9-23); CALCIUM LEVEL 8.8 MG/DL (8.5-10.1); CARBON DIOXIDE LEVEL 21 MMOL/L (20-31); CHLORIDE LEVEL 106 MMOL/L (98-107); CREATININE FOR GFR 0.92 MG/DL (0.70-1.30); GLOMERULAR FILTRATION RATE > 60.0 (>60); GLUCOSE, FASTING 114 MG/DL (60-100); POTASSIUM SERUM 4.7 MMOL/L (3.5-5.1); SODIUM LEVEL 135 MMOL/L (136-145)
[2024-07-19] MEDS ORDERED: HYDROCORTISONE 10 MG TAB PO SCH (09:00)
[2024-07-19] MEDS: NAPROXEN 250 MG TAB PO SCH (09:00)
[2024-07-19 12:00] VITALS: BP 99/63; TEMP 97.5; O2SAT 98
[2024-07-19 20:09] VITALS: BP 99/64; TEMP 97.7; O2SAT 99
[2024-07-20 04:00] VITALS: BP 98/57; TEMP 97.3; O2SAT 98
[2024-07-20 06:02] LABS: BASO % 0.2 % (0.0-1.0); HEMATOCRIT 23.8 % (42.0-52.0); HEMOGLOBIN 7.4 g/dl (13.5-17.5); LYMPH # 1.2 10^3/uL (1.5-5.0); LYMPH % 4.9 % (24.0-44.0); MEAN CORPUSCULAR HEMOGLOBIN 25.2 pg (27.0-33.0); MEAN CORPUSCULAR HGB CONC 31.1 g/dl (32.0-36.5); MONO # 0.6 10^3/uL (0.0-0.8); MONO % 2.3 % (2.0-8.0); NEUTROPHILS # 22.9 10^3/uL (1.5-8.5); NEUTROPHILS % 91.8 % (36.0-66.0); PLATELET COUNT, AUTOMATED 366 10^3/uL (150-450); RED BLOOD COUNT 2.94 10^6/uL (4.30-6.10)
[2024-07-20 06:23] LABS: BLOOD UREA NITROGEN 22 MG/DL (9-23); CALCIUM LEVEL 8.6 MG/DL (8.5-10.1); CARBON DIOXIDE LEVEL 24 MMOL/L (20-31); CHLORIDE LEVEL 109 MMOL/L (98-107); CREATININE FOR GFR 1.01 MG/DL (0.70-1.30); GLOMERULAR FILTRATION RATE > 60.0 (>60); GLUCOSE, FASTING 182 MG/DL (60-100); POTASSIUM SERUM 4.1 MMOL/L (3.5-5.1); SODIUM LEVEL 139 MMOL/L (136-145)
[2024-07-20 11:22] VITALS: BP 115/80; TEMP 98.1; O2SAT 98
[2024-07-20] MEDS: HYDROCORTISONE 100MG/2ML VIAL IV SCH (11:42)
[2024-07-20] MEDS ORDERED: NAPROXEN 250 MG TAB PO PRN (12:00)
[2024-07-20 13:13] VITALS: BP 117/78; TEMP 98.9; O2SAT 98
[2024-07-20 20:36] VITALS: BP 111/52; TEMP 97; O2SAT 95
[2024-07-21] VITALS (7 sets, daily range): BP systolic 106–116; BP diastolic 51–74; TEMP 97–98.1; O2SAT 97–99
[2024-07-21 06:11] LABS: BASO % 0.1 % (0.0-1.0); HEMATOCRIT 23.6 % (42.0-52.0); HEMOGLOBIN 7.1 g/dl (13.5-17.5); LYMPH # 1.4 10^3/uL (1.5-5.0); LYMPH % 7.6 % (24.0-44.0); MEAN CORPUSCULAR HEMOGLOBIN 25.1 pg (27.0-33.0); MEAN CORPUSCULAR HGB CONC 30.1 g/dl (32.0-36.5); MEAN CORPUSCULAR VOLUME 83.4 fl (80.0-96.0); MONO # 0.5 10^3/uL (0.0-0.8); MONO % 2.6 % (2.0-8.0); NEUTROPHILS # 16.7 10^3/uL (1.5-8.5); NEUTROPHILS % 88.6 % (36.0-66.0); PLATELET COUNT, AUTOMATED 320 10^3/uL (150-450); RED BLOOD COUNT 2.83 10^6/uL (4.30-6.10); WHITE BLOOD COUNT 18.8 10^3/uL (4.0-10.0)
[2024-07-21 06:25] LABS: BLOOD UREA NITROGEN 17 MG/DL (9-23); CALCIUM LEVEL 8.2 MG/DL (8.5-10.1); CARBON DIOXIDE LEVEL 24 MMOL/L (20-31); CHLORIDE LEVEL 114 MMOL/L (98-107); CREATININE FOR GFR 0.67 MG/DL (0.70-1.30); GLOMERULAR FILTRATION RATE > 60.0 (>60); GLUCOSE, FASTING 146 MG/DL (60-100); POTASSIUM SERUM 3.6 MMOL/L (3.5-5.1); SODIUM LEVEL 143 MMOL/L (136-145)
[2024-07-21 09:17] LABS: PROCALCITONIN 0.07 ng/ml
[2024-07-21 14:17] LABS: HEMOGLOBIN 8.3 g/dl (13.5-17.5)
[2024-07-21] MEDS: LEVOTHYROXINE 25MCG TABLET (0.025MG) PO ONE (14:33)
[2024-07-21 18:38] LABS: HEMATOCRIT 25.2 % (42.0-52.0); HEMOGLOBIN 7.8 g/dl (13.5-17.5)
[2024-07-22 04:07] VITALS: BP 126/66; TEMP 97.2; O2SAT 96
[2024-07-22] MEDS: LEVOTHYROXINE 150MCG TABLET (0.15MG) PO SCH (05:51)
[2024-07-22 06:38] LABS: BASO % 0.2 % (0.0-1.0); HEMATOCRIT 24.9 % (42.0-52.0); HEMOGLOBIN 7.6 g/dl (13.5-17.5); LYMPH # 2.8 10^3/uL (1.5-5.0); LYMPH % 20.7 % (24.0-44.0); MEAN CORPUSCULAR HEMOGLOBIN 25.6 pg (27.0-33.0); MEAN CORPUSCULAR HGB CONC 30.5 g/dl (32.0-36.5); MEAN CORPUSCULAR VOLUME 83.8 fl (80.0-96.0); MONO # 0.7 10^3/uL (0.0-0.8); MONO % 5.5 % (2.0-8.0); NEUTROPHILS # 9.7 10^3/uL (1.5-8.5); NEUTROPHILS % 72.6 % (36.0-66.0); PLATELET COUNT, AUTOMATED 281 10^3/uL (150-450); RED BLOOD COUNT 2.97 10^6/uL (4.30-6.10); WHITE BLOOD COUNT 13.3 10^3/uL (4.0-10.0)
[2024-07-22 06:59] LABS: BLOOD UREA NITROGEN 15 MG/DL (9-23); CALCIUM LEVEL 7.9 MG/DL (8.5-10.1); CARBON DIOXIDE LEVEL 24 MMOL/L (20-31); CHLORIDE LEVEL 114 MMOL/L (98-107); CREATININE FOR GFR 0.61 MG/DL (0.70-1.30); GLOMERULAR FILTRATION RATE > 60.0 (>60); GLUCOSE, FASTING 115 MG/DL (60-100); POTASSIUM SERUM 3.5 MMOL/L (3.5-5.1); SODIUM LEVEL 143 MMOL/L (136-145)
[2024-07-22 07:46] VITALS: BP 112/80; TEMP 97.9; O2SAT 98
[2024-07-22 09:24] LABS: FREE T4 1.12 NG/DL (0.89-1.76); THYROID STIMULATING HORMONE 6.135 uIU/ML (0.55-4.78)
[2024-07-22 11:30] VITALS: BP 117/86; TEMP 97.9
[2024-07-22 12:00] VITALS: BP 99/70; TEMP 97.3; O2SAT 97
[2024-07-22 12:49] LABS: ALBUMIN 1.9 G/DL (3.2-5.2); ALKALINE PHOSPHATASE 96 U/L (40-129); ALT/SGPT 36 U/L (7.0-40); AST/SGOT 38 U/L (<34); BILIRUBIN,DIRECT < 0.1 MG/DL (<0.4); BILIRUBIN,TOTAL < 0.2 MG/DL (0.3-1.2); TOTAL PROTEIN 6.9 G/DL (5.7-8.2)
[2024-07-22] MEDS: LACTULOSE 20GM/30ML SYRUP UDC PO PRN (12:59)
[2024-07-22] MEDS: MOM 30ML SUSPENSION UDC PO PRN (12:59)
[2024-07-22 18:10] VITALS: BP 105/68
[2024-07-22] MEDS: MIDODRINE 5 MG TAB PO ONE (18:11)
[2024-07-22] MEDS: HYDROCORTISONE 100MG/2ML VIAL IV SCH (18:11)
[2024-07-22] MEDS: NS 500 ML IV ONE (18:14)
[2024-07-22 21:06] VITALS: BP 120/71; TEMP 97.7; O2SAT 99
[2024-07-23 04:23] VITALS: BP 140/85; TEMP 97.7; O2SAT 96
[2024-07-23 07:05] LABS: BASO % 0.1 % (0.0-1.0); EOS % 0.1 % (0.0-3.0); HEMATOCRIT 27.5 % (42.0-52.0); HEMOGLOBIN 8.3 g/dl (13.5-17.5); LYMPH # 2.3 10^3/uL (1.5-5.0); LYMPH % 17.4 % (24.0-44.0); MEAN CORPUSCULAR HEMOGLOBIN 25.7 pg (27.0-33.0); MEAN CORPUSCULAR HGB CONC 30.2 g/dl (32.0-36.5); MEAN CORPUSCULAR VOLUME 85.1 fl (80.0-96.0); MONO # 0.9 10^3/uL (0.0-0.8); MONO % 6.8 % (2.0-8.0); NEUTROPHILS # 9.8 10^3/uL (1.5-8.5); NEUTROPHILS % 72.7 % (36.0-66.0); PLATELET COUNT, AUTOMATED 330 10^3/uL (150-450); RED BLOOD COUNT 3.23 10^6/uL (4.30-6.10); WHITE BLOOD COUNT 13.4 10^3/uL (4.0-10.0)
[2024-07-23 07:17] LABS: INR 1.08; PARTIAL THROMBOPLASTIN TIME 30.4 SECONDS (24.8-34.2); PROTHROMBIN TIME 14.3 SECONDS (12.5-14.5)
[2024-07-23 07:48] LABS: PROCALCITONIN <0.04 ng/ml
[2024-07-23 07:50] LABS: BLOOD UREA NITROGEN 13 MG/DL (9-23); CALCIUM LEVEL 8.1 MG/DL (8.5-10.1); CARBON DIOXIDE LEVEL 27 MMOL/L (20-31); CHLORIDE LEVEL 109 MMOL/L (98-107); CREATININE FOR GFR 0.59 MG/DL (0.70-1.30); GLOMERULAR FILTRATION RATE > 60.0 (>60); GLUCOSE, FASTING 93 MG/DL (60-100); POTASSIUM SERUM 3.5 MMOL/L (3.5-5.1); SODIUM LEVEL 142 MMOL/L (136-145)
[2024-07-23 09:57] LABS: T P ELECTROPHORESIS SO 7.6 g/dL (6.1-8.1)
[2024-07-23] MEDS ORDERED: LIDOCAINE 1% MDV 20ML VIAL As Ordered ONE (11:50)
[2024-07-23 13:00] VITALS: BP 126/80; TEMP 97.7; O2SAT 99
[2024-07-23 13:49] LABS: FREE LAMBDA LIGHT CHAINS SERUM 39.7 mg/L (5.7-26.3); KAPPA/LAMBDA RATIO SERUM 1.08 (0.26-1.65)
[2024-07-23] MEDS ORDERED: HYDR-4468 PO (17:36)
[2024-07-23] MEDS: HYDROCORTISONE 10 MG TAB PO SCH (18:34)
[2024-07-23 19:35] VITALS: BP 97/62; TEMP 97.7; O2SAT 97
[2024-07-24 04:35] VITALS: BP 127/78; TEMP 97.9; O2SAT 97
[2024-07-24 05:53] LABS: BASO % 0.3 % (0.0-1.0); EOS # 0.1 10^3/uL (0.0-0.5); EOS % 1.1 % (0.0-3.0); HEMATOCRIT 26.8 % (42.0-52.0); HEMOGLOBIN 8.3 g/dl (13.5-17.5); LYMPH # 2.4 10^3/uL (1.5-5.0); LYMPH % 21.1 % (24.0-44.0); MEAN CORPUSCULAR HEMOGLOBIN 25.9 pg (27.0-33.0); MEAN CORPUSCULAR VOLUME 83.8 fl (80.0-96.0); MONO % 8.6 % (2.0-8.0); NEUTROPHILS # 7.5 10^3/uL (1.5-8.5); NEUTROPHILS % 66.4 % (36.0-66.0); PLATELET COUNT, AUTOMATED 286 10^3/uL (150-450); WHITE BLOOD COUNT 11.3 10^3/uL (4.0-10.0)
[2024-07-24 06:26] LABS: BLOOD UREA NITROGEN 14 MG/DL (9-23); CALCIUM LEVEL 7.8 MG/DL (8.5-10.1); CARBON DIOXIDE LEVEL 27 MMOL/L (20-31); CHLORIDE LEVEL 108 MMOL/L (98-107); GLOMERULAR FILTRATION RATE > 60.0 (>60); GLUCOSE, FASTING 102 MG/DL (60-100); POTASSIUM SERUM 3.4 MMOL/L (3.5-5.1); SODIUM LEVEL 141 MMOL/L (136-145)
[2024-07-24 06:52] LABS: ALBUMIN SPEP 2.8 g/dL (3.8-4.8); ALPHA-1-GLOBULINS SO 0.4 g/dL (0.2-0.3); ALPHA-2-GLOBULINS SO 0.9 g/dL (0.5-0.9); BETA 2 GLOBULIN 0.6 g/dL (0.2-0.5); BETA-GLOBULIN SO 0.4 g/dL (0.4-0.6); GAMMA GLOBULINS SO 2.4 g/dL (0.8-1.7)
[2024-07-24] MEDS ORDERED: POTA-298 PO (07:01)
[2024-07-24] MEDS: POTASSIUM CHLORIDE 10MEQ SR TABLET PO ONE (08:30)
[2024-07-24 09:54] VITALS: BP 120/78; TEMP 97.8
[2024-07-24 12:23] VITALS: BP 110/70; TEMP 96.6; O2SAT 97
[2024-07-27 15:08] LABS: LYME TOTAL ANTIBODY CIA <= 0.90 Index (<=0.90)
== END 2024-07-24 13:35 | disposition home or self-care (01) | DRG 556 ==
LOC: M ED 12:47 → EDBD 12:47 → M ED INP 15:51 → M MS5PR 17:05
PROVIDERS: ADMIT Internal Medicine Nephrology; ATTEND General Practice
PROC: 0S9C3ZX Drainage of Right Knee Joint, Percutaneous Approach, Diagnostic (ICD-10-PCS; 2024-07-18)
PROC: 30233N1 Transfusion of Nonautologous Red Blood Cells into Peripheral Vein, Percutaneous Approach (ICD-10-PCS; principal; 2024-07-21)
PROC: 07DR3ZX Extraction of Iliac Bone Marrow, Percutaneous Approach, Diagnostic (ICD-10-PCS; 2024-07-23)
DX: M25.561 Pain in right knee (principal); E27.3 Drug-induced adrenocortical insufficiency; N32.81 Overactive bladder; G80.9 Cerebral palsy, unspecified; M25.562 Pain in left knee; E03.9 Hypothyroidism, unspecified; J45.909 Unspecified asthma, uncomplicated; F32.A Depression, unspecified; F41.9 Anxiety disorder, unspecified; D50.9 Iron deficiency anemia, unspecified; Z79.890 Hormone replacement therapy; Z79.899 Other long term (current) drug therapy; Z88.1 Allergy status to other antibiotic agents; Z85.820 Personal history of malignant melanoma of skin; Z87.891 Personal history of nicotine dependence; Z86.16 Personal history of COVID-19

== ENCOUNTER → 2024-07-30 | Outpatient (CLI) | payer MEDICARE, MEDICAID ==
[~2024-07-30] MED LIST changes: +ALBU8.5H INH; +HYDR-4467 PO; +HYDR-4468 PO; +MELO7.5T35 PO; +POTA-298 PO
[2024-07-30 15:47] LABS: BASO # 0.1 10^3/uL (0.0-0.2); BASO % 0.4 % (0.0-1.0); EOS # 0.3 10^3/uL (0.0-0.5); HEMATOCRIT 34.7 % (42.0-52.0); HEMOGLOBIN 10.7 g/dl (13.5-17.5); LYMPH # 3.9 10^3/uL (1.5-5.0); LYMPH % 22.8 % (24.0-44.0); MEAN CORPUSCULAR HEMOGLOBIN 26.6 pg (27.0-33.0); MEAN CORPUSCULAR HGB CONC 30.8 g/dl (32.0-36.5); MEAN CORPUSCULAR VOLUME 86.1 fl (80.0-96.0); MONO # 0.9 10^3/uL (0.0-0.8); MONO % 5.2 % (2.0-8.0); NEUTROPHILS # 11.7 10^3/uL (1.5-8.5); NEUTROPHILS % 69.1 % (36.0-66.0); PLATELET COUNT, AUTOMATED 241 10^3/uL (150-450); RED BLOOD COUNT 4.03 10^6/uL (4.30-6.10)
[2024-07-30 16:26] LABS: ALBUMIN 2.9 G/DL (3.2-5.2); ALKALINE PHOSPHATASE 159 U/L (40-129); ALT/SGPT 127 U/L (7.0-40); AST/SGOT 42 U/L (<34); BILIRUBIN,TOTAL 0.4 MG/DL (0.3-1.2); BLOOD UREA NITROGEN 19 MG/DL (9-23); CALCIUM LEVEL 9.3 MG/DL (8.5-10.1); CARBON DIOXIDE LEVEL 27 MMOL/L (20-31); CHLORIDE LEVEL 103 MMOL/L (98-107); CREATININE FOR GFR 0.82 MG/DL (0.70-1.30); FREE T4 1.26 NG/DL (0.89-1.76); GLOMERULAR FILTRATION RATE > 60.0 (>60); GLUCOSE, FASTING 92 MG/DL (60-100); POTASSIUM SERUM 4.7 MMOL/L (3.5-5.1); SODIUM LEVEL 138 MMOL/L (136-145); TOTAL PROTEIN 8.2 G/DL (5.7-8.2)
== END ==
LOC: M PLALAB 13:00
PROVIDERS: ATTEND Physician Assistant Medical
DX: E03.9 Hypothyroidism, unspecified (principal); D64.9 Anemia, unspecified

== ENCOUNTER 2024-07-31 14:41 | Emergency (ER) | payer MEDICARE, MEDICAID ==
[~2024-07-31] VITALS: Ht 185.4 cm; Wt 78.4 kg
[2024-07-31 16:48] VITALS: BP 113/74; TEMP 97.3; O2SAT 100
[2024-07-31 17:33] LABS: BASO % 0.4 % (0.0-1.0); EOS # 0.2 10^3/uL (0.0-0.5); EOS % 2.2 % (0.0-3.0); HEMATOCRIT 29.2 % (42.0-52.0); HEMOGLOBIN 9.1 g/dl (13.5-17.5); LYMPH # 2.7 10^3/uL (1.5-5.0); LYMPH % 28.5 % (24.0-44.0); MEAN CORPUSCULAR HEMOGLOBIN 27.1 pg (27.0-33.0); MEAN CORPUSCULAR HGB CONC 31.2 g/dl (32.0-36.5); MEAN CORPUSCULAR VOLUME 86.9 fl (80.0-96.0); MONO # 0.6 10^3/uL (0.0-0.8); NEUTROPHILS # 5.9 10^3/uL (1.5-8.5); NEUTROPHILS % 62.5 % (36.0-66.0); PLATELET COUNT, AUTOMATED 177 10^3/uL (150-450); RED BLOOD COUNT 3.36 10^6/uL (4.30-6.10); WHITE BLOOD COUNT 9.5 10^3/uL (4.0-10.0)
[2024-07-31 17:44] LABS: ERYTHROCYTE SEDIMENTATION RATE 51 mm/hr (0-15)
[2024-07-31 17:55] LABS: LIPASE 16 U/L (12-53)
[2024-07-31 18:01] LABS: ALBUMIN 2.6 G/DL (3.2-5.2); ALKALINE PHOSPHATASE 126 U/L (40-129); ALT/SGPT 84 U/L (7.0-40); AST/SGOT 26 U/L (<34); BILIRUBIN,DIRECT 0.1 MG/DL (<0.4); BILIRUBIN,TOTAL 0.3 MG/DL (0.3-1.2); BLOOD UREA NITROGEN 19 MG/DL (9-23); CALCIUM LEVEL 8.6 MG/DL (8.5-10.1); CARBON DIOXIDE LEVEL 28 MMOL/L (20-31); CHLORIDE LEVEL 105 MMOL/L (98-107); CREATININE FOR GFR 0.77 MG/DL (0.70-1.30); FREE T4 1.11 NG/DL (0.89-1.76); GLOMERULAR FILTRATION RATE > 60.0 (>60); GLUCOSE, FASTING 80 MG/DL (60-100); POTASSIUM SERUM 4.2 MMOL/L (3.5-5.1); SODIUM LEVEL 141 MMOL/L (136-145); TOTAL PROTEIN 7.2 G/DL (5.7-8.2)
[2024-08-03] MEDS ORDERED: MEKT15TA PO (13:15)
[2024-08-03] MEDS ORDERED: BRAF75CA PO (13:15)
== END 2024-07-31 18:48 | disposition home or self-care (01) ==
LOC: M ED 14:41
DX: Z13.9 Encounter for screening, unspecified (principal); G80.9 Cerebral palsy, unspecified; J45.909 Unspecified asthma, uncomplicated; E55.9 Vitamin D deficiency, unspecified; Z86.73 Personal history of transient ischemic attack (TIA), and cerebral infarction without residual deficits; Z85.820 Personal history of malignant melanoma of skin; Z79.899 Other long term (current) drug therapy

== ENCOUNTER → 2024-08-11 | Outpatient (CLI) | payer MEDICARE, MEDICAID | LOC: M ONCM 11:38 | PROVIDERS: ATTEND Dietitian, Registered | DX: C43.9 Malignant melanoma of skin, unspecified (principal); Z71.3 Dietary counseling and surveillance; Z68.22 Body mass index [BMI] 22.0-22.9, adult ==

== ENCOUNTER → 2024-08-25 | Outpatient (CLI) | payer MEDICARE, MEDICAID | LOC: M ONCM 08:14 | PROVIDERS: ATTEND Dietitian, Registered | DX: C43.9 Malignant melanoma of skin, unspecified (principal); Z71.3 Dietary counseling and surveillance; Z68.22 Body mass index [BMI] 22.0-22.9, adult ==

== ENCOUNTER → 2024-09-08 | Outpatient (CLI) | payer MEDICARE, MEDICAID ==
[~2024-09-08] VITALS: Ht 185.4 cm; Wt 81.6 kg
[2024-09-08 13:44] VITALS: BP 118/78; O2SAT 97
== END ==
LOC: M PAL 13:33
PROVIDERS: ATTEND Family Medicine
DX: Z51.5 Encounter for palliative care (principal); C43.72 Malignant melanoma of left lower limb, including hip; C77.4 Secondary and unspecified malignant neoplasm of inguinal and lower limb lymph nodes; G80.9 Cerebral palsy, unspecified; R52 Pain, unspecified; R11.0 Nausea; R53.83 Other fatigue; Z79.890 Hormone replacement therapy; Z79.1 Long term (current) use of non-steroidal anti-inflammatories (NSAID); Z79.899 Other long term (current) drug therapy

== ENCOUNTER → 2024-09-21 | Outpatient (CLI) | payer MEDICARE, MEDICAID ==
[~2024-09-21] MED LIST changes: +ISOVUE-370 76% 100ML VIAL As Ordered ONE
== END ==
LOC: M RAD 13:46
PROVIDERS: ATTEND Internal Medicine Medical Oncology
DX: C43.9 Malignant melanoma of skin, unspecified (principal); R16.1 Splenomegaly, not elsewhere classified; R59.0 Localized enlarged lymph nodes; R93.2 Abnormal findings on diagnostic imaging of liver and biliary tract
CPT/HCPCS: 71260; 74177; Q9967

== ENCOUNTER → 2024-10-09 | Outpatient (CLI) | payer MEDICARE, MEDICAID ==
[~2024-10-09] MED LIST changes: -ISOVUE-370 76% 100ML VIAL As Ordered ONE; +ISOVUE-370 76% 100ML VIAL ONE; +LEVO-95 PO; +PROHANCE 279.3MG/ML 15ML VIAL ONE
== END ==
LOC: M PLAIMG 07:13
PROVIDERS: ATTEND Physician Assistant Surgical
DX: M17.11 Unilateral primary osteoarthritis, right knee (principal); M25.461 Effusion, right knee; S83.241A Other tear of medial meniscus, current injury, right knee, initial encounter; M67.51 Plica syndrome, right knee; M67.52 Plica syndrome, left knee; M25.462 Effusion, left knee
CPT/HCPCS: 73723; A9576

== ENCOUNTER → 2024-11-05 | Outpatient (CLI) | payer MEDICARE, MEDICAID ==
[~2024-11-05] VITALS: Ht 182.9 cm; Wt 83.2 kg
[~2024-11-05] MED LIST changes: -ISOVUE-370 76% 100ML VIAL ONE; +MELO15TA28 PO; +OXYC-517 PO; -PROHANCE 279.3MG/ML 15ML VIAL ONE; +TRAZ-252 PO
[2024-11-05 14:51] VITALS: BP 123/84; O2SAT 96
== END ==
LOC: M PAL 14:17
PROVIDERS: ATTEND Family Medicine
DX: Z51.5 Encounter for palliative care (principal); C43.72 Malignant melanoma of left lower limb, including hip; C77.4 Secondary and unspecified malignant neoplasm of inguinal and lower limb lymph nodes; M25.50 Pain in unspecified joint; G80.9 Cerebral palsy, unspecified; Z92.3 Personal history of irradiation; Z79.632 Long term (current) use of antitumor antibiotic; Z79.1 Long term (current) use of non-steroidal anti-inflammatories (NSAID); Z79.891 Long term (current) use of opiate analgesic; Z79.890 Hormone replacement therapy; Z79.899 Other long term (current) drug therapy

== ENCOUNTER → 2024-12-22 | Outpatient (CLI) | payer MEDICARE, MEDICAID ==
[~2024-12-22] VITALS: Ht 180.3 cm; Wt 85.9 kg
[~2024-12-22] MED LIST changes: +TRAZ-257 PO
[2024-12-22 08:28] VITALS: BP 125/85; O2SAT 98
== END ==
LOC: M PAL 08:17
PROVIDERS: ATTEND Physician Assistant
DX: Z51.5 Encounter for palliative care (principal); C43.72 Malignant melanoma of left lower limb, including hip; C77.4 Secondary and unspecified malignant neoplasm of inguinal and lower limb lymph nodes; G80.9 Cerebral palsy, unspecified; Z79.632 Long term (current) use of antitumor antibiotic; Z79.891 Long term (current) use of opiate analgesic; K59.09 Other constipation; Z99.89 Dependence on other enabling machines and devices

== ENCOUNTER → 2024-12-22 | Outpatient (CLI) | payer MEDICARE, MEDICAID | LOC: M RAD 09:19 | PROVIDERS: ATTEND Physician Assistant | DX: M79.606 Pain in leg, unspecified (principal); M79.89 Other specified soft tissue disorders ==

== ENCOUNTER → 2024-12-29 | Outpatient (CLI) | payer MEDICARE, MEDICAID ==
[~2024-12-29] MED LIST changes: +ISOVUE-370 76% 100ML VIAL As Ordered ONE
== END ==
LOC: M RAD 08:49
PROVIDERS: ATTEND Internal Medicine Medical Oncology
DX: C43.9 Malignant melanoma of skin, unspecified (principal)
CPT/HCPCS: 71260; 74177; Q9967

== ENCOUNTER → 2025-01-11 | Outpatient (CLI) | payer MEDICARE, MEDICAID ==
[~2025-01-11] MED LIST changes: -ISOVUE-370 76% 100ML VIAL As Ordered ONE
== END ==
LOC: M PAL 15:11
PROVIDERS: ATTEND Physician Assistant
DX: Z51.5 Encounter for palliative care (principal); C43.72 Malignant melanoma of left lower limb, including hip; C77.4 Secondary and unspecified malignant neoplasm of inguinal and lower limb lymph nodes; Z92.21 Personal history of antineoplastic chemotherapy; G80.9 Cerebral palsy, unspecified; Z92.3 Personal history of irradiation; Z79.891 Long term (current) use of opiate analgesic; M25.59 Pain in other specified joint; Z79.899 Other long term (current) drug therapy

== ENCOUNTER → 2025-01-25 | Outpatient (CLI) | payer MEDICARE, MEDICAID | LOC: M PAL 08:30 | PROVIDERS: ATTEND Physician Assistant | DX: Z51.5 Encounter for palliative care (principal); C43.72 Malignant melanoma of left lower limb, including hip; C77.4 Secondary and unspecified malignant neoplasm of inguinal and lower limb lymph nodes; Z92.21 Personal history of antineoplastic chemotherapy; G81.11 Spastic hemiplegia affecting right dominant side; Z92.3 Personal history of irradiation; Z79.891 Long term (current) use of opiate analgesic; Z79.899 Other long term (current) drug therapy ==

== ENCOUNTER → 2025-03-25 | Outpatient (CLI) | payer MEDICARE, MEDICAID ==
[~2025-03-25] VITALS: Ht 180.3 cm; Wt 86.1 kg
[~2025-03-25] MED LIST changes: +GABA-1171 PO; +HYDR50TA70 PO
[2025-03-25 09:53] VITALS: BP 146/85; O2SAT 97
== END ==
LOC: M PAL 09:42
PROVIDERS: ATTEND Physician Assistant
DX: Z51.5 Encounter for palliative care (principal); C43.72 Malignant melanoma of left lower limb, including hip; C77.4 Secondary and unspecified malignant neoplasm of inguinal and lower limb lymph nodes; G81.11 Spastic hemiplegia affecting right dominant side; R52 Pain, unspecified; R11.0 Nausea; Z79.1 Long term (current) use of non-steroidal anti-inflammatories (NSAID); Z79.622 Long term (current) use of Janus kinase inhibitor; Z79.899 Other long term (current) drug therapy

== ENCOUNTER 2025-04-03 13:45 | Emergency (ER) | payer MEDICARE, MEDICAID ==
[~2025-04-03] VITALS: Ht 180.3 cm; Wt 86.1 kg
[2025-04-03 14:44] LABS: BASO # 0.1 10^3/uL (0.0-0.2); BASO % 1.1 % (0.0-1.0); EOS # 0.3 10^3/uL (0.0-0.5); EOS % 6.3 % (0.0-3.0); LYMPH # 2.1 10^3/uL (1.5-5.0); LYMPH % 46.4 % (24.0-44.0); MONO # 0.4 10^3/uL (0.0-0.8); MONO % 9.7 % (2.0-8.0); NEUTROPHILS # 1.6 10^3/uL (1.5-8.5); NEUTROPHILS % 36.5 % (36.0-66.0); PLATELET COUNT, AUTOMATED 157 10^3/uL (150-450)
[2025-04-03 15:00] LABS: INR 1.27
[2025-04-03 15:23] LABS: ALT/SGPT 118.0 U/L (7.0-40); AST/SGOT 145.0 U/L (<34); CALCIUM LEVEL 8.3 MG/DL (8.5-10.1); CARBON DIOXIDE LEVEL 26.0 MMOL/L (20-31); CHLORIDE LEVEL 105.0 MMOL/L (98-107); CREATININE FOR GFR 1.13 MG/DL (0.70-1.30); GLOMERULAR FILTRATION RATE 88.0 (>60); POTASSIUM SERUM 4.2 MMOL/L (3.5-5.1); SODIUM LEVEL 140.0 MMOL/L (136-145)
[2025-04-03] MEDS: ONDANSETRON 4MG 2ML VIAL IV ONE (15:53)
[2025-04-03 16:00] VITALS: BP 108/65; TEMP 97.1; O2SAT 99
== END 2025-04-03 16:03 | disposition home or self-care (01) ==
LOC: M ED 13:45
DX: H11.33 Conjunctival hemorrhage, bilateral (principal); R74.01 Elevation of levels of liver transaminase levels; J45.909 Unspecified asthma, uncomplicated; F32.9 Major depressive disorder, single episode, unspecified; F41.9 Anxiety disorder, unspecified; G80.9 Cerebral palsy, unspecified; Z79.899 Other long term (current) drug therapy
CPT/HCPCS: 80048; 80076; 85025; 85610; 85730; 96374; 99284; J2405

== ENCOUNTER → 2025-04-07 | Outpatient (CLI) | payer MEDICARE, MEDICAID ==
[~2025-04-07] MED LIST changes: +ISOVUE-370 76% 100 ML VIAL As Ordered ONE
== END ==
LOC: M RAD 06:46
PROVIDERS: ATTEND Specialist
DX: C43.72 Malignant melanoma of left lower limb, including hip (principal)
CPT/HCPCS: 71260; 74177; Q9967

== ENCOUNTER → 2025-04-20 | Outpatient (CLI) | payer MEDICARE, MEDICAID ==
[~2025-04-20] VITALS: Ht 180.3 cm; Wt 88.3 kg
[~2025-04-20] MED LIST changes: -ISOVUE-370 76% 100 ML VIAL As Ordered ONE
[2025-04-20 11:15] VITALS: BP 156/86; O2SAT 98
== END ==
LOC: M PAL 11:03
PROVIDERS: ATTEND Physician Assistant
DX: Z51.5 Encounter for palliative care (principal); C43.72 Malignant melanoma of left lower limb, including hip; C77.4 Secondary and unspecified malignant neoplasm of inguinal and lower limb lymph nodes; Z92.21 Personal history of antineoplastic chemotherapy; G81.11 Spastic hemiplegia affecting right dominant side; Z92.3 Personal history of irradiation; Z79.891 Long term (current) use of opiate analgesic; Z79.899 Other long term (current) drug therapy

== ENCOUNTER → 2025-05-13 | Outpatient (CLI) | payer MEDICARE, MEDICAID ==
[~2025-05-13] MED LIST changes: +PROHANCE 279.3MG/ML 15ML VIAL As Ordered ONE; +PROHANCE 279.3MG/ML 5ML VIAL As Ordered ONE
== END ==
LOC: M RAD 09:55
PROVIDERS: ATTEND Internal Medicine Medical Oncology
DX: C43.9 Malignant melanoma of skin, unspecified (principal); R51.9 Headache, unspecified
CPT/HCPCS: 70553; A9576

== ENCOUNTER 2025-05-20 13:54 | Emergency (ER) | payer MEDICARE, MEDICAID ==
[~2025-05-20] VITALS: Ht 185.4 cm; Wt 90.2 kg
[~2025-05-20 13:54] MED LIST changes: -PROHANCE 279.3MG/ML 15ML VIAL As Ordered ONE; -PROHANCE 279.3MG/ML 5ML VIAL As Ordered ONE
[2025-05-20 16:22] VITALS: BP 128/78; TEMP 98.1; O2SAT 97
== END 2025-05-20 16:23 | disposition home or self-care (01) ==
LOC: M ED 14:55
DX: R33.9 Retention of urine, unspecified (principal); C43.9 Malignant melanoma of skin, unspecified; Z79.899 Other long term (current) drug therapy
CPT/HCPCS: 36415; 80053; 82533; 84439; 84443; 85025; 99284; G0463

== ENCOUNTER 2025-06-08 17:04 | Emergency (ER) | payer MEDICARE, MEDICAID ==
[~2025-06-08] VITALS: Ht 180.3 cm; Wt 90.9 kg
[2025-06-08] MEDS ORDERED: PROC25SU27 PR (17:26)
[2025-06-08] MEDS ORDERED: SERT200C PO (17:26)
[2025-06-08] MEDS ORDERED: ACET-907 PO (17:26)
[2025-06-08] MEDS ORDERED: IBUP-1114 PO (17:26)
[2025-06-08 18:16] LABS: BASO # 0.1 10^3/uL (0.0-0.2); BASO % 0.6 % (0.0-1.0); EOS # 0.1 10^3/uL (0.0-0.5); EOS % 1.7 % (0.0-3.0); LYMPH # 3.2 10^3/uL (1.5-5.0); LYMPH % 38.0 % (24.0-44.0); MONO # 0.5 10^3/uL (0.0-0.8); MONO % 6.1 % (2.0-8.0); NEUTROPHILS # 4.4 10^3/uL (1.5-8.5); NEUTROPHILS % 53.5 % (36.0-66.0); PLATELET COUNT, AUTOMATED 174 10^3/uL (150-450)
[2025-06-08 18:34] LABS: AMPHETAMINES LEVEL URINE NEGATIVE (NEGATIVE); BARBITURATES URINE NEGATIVE (NEGATIVE); COCAINE METABOLITE URINE NEGATIVE (NEGATIVE); METHADONE URINE NEGATIVE (NEGATIVE)
[2025-06-08 18:35] LABS: BENZODIAZEPINES URINE NEGATIVE (NEGATIVE); CANNABINOIDS URINE NEGATIVE (NEGATIVE); OPIATES URINE NEGATIVE (NEGATIVE); PHENCYCLIDINE URINE NEGATIVE (NEGATIVE)
[2025-06-08 18:54] LABS: ALT/SGPT 51 U/L (7.0-40); AST/SGOT 45 U/L (<34); CALCIUM LEVEL 8.4 MG/DL (8.5-10.1); CARBON DIOXIDE LEVEL 28 MMOL/L (20-31); CHLORIDE LEVEL 105 MMOL/L (98-107); CREATININE FOR GFR 1.03 MG/DL (0.70-1.30); ETHYL ALCOHOL (ETHANOL) < 0.003 % (0.000-0.010); GLOMERULAR FILTRATION RATE > 90.0 (>60); MAGNESIUM LEVEL 1.9 MG/DL (1.8-2.4); POTASSIUM SERUM 3.6 MMOL/L (3.5-5.1); SODIUM LEVEL 142 MMOL/L (136-145)
[2025-06-08 21:15] VITALS: BP 126/88
[2025-06-08 21:19] VITALS: O2SAT 98
[2025-06-08 21:43] VITALS: TEMP 98.8
== END 2025-06-08 21:46 | disposition home or self-care (01) ==
LOC: EDBD 17:04 → M ED 17:04
DX: R56.9 Unspecified convulsions (principal); J45.909 Unspecified asthma, uncomplicated; F32.A Depression, unspecified; C43.72 Malignant melanoma of left lower limb, including hip
CPT/HCPCS: 70450; 80048; 80076; 80307; 82077; 83735; 84443; 85025; 93041; 94760; 96374; 99285; J2060

== ENCOUNTER → 2025-07-15 | Outpatient (CLI) | payer MEDICARE, MEDICAID ==
[~2025-07-15] MED LIST changes: +ACET-907 PO; +DIVA-41; +IBUP-1114 PO; +LEVO175T2 PO; +PROC25SU27 PR; +SERT200C PO
== END ==
LOC: M PLAIMG 08:55
PROVIDERS: ATTEND Internal Medicine Medical Oncology
DX: C43.9 Malignant melanoma of skin, unspecified (principal); I08.1 Rheumatic disorders of both mitral and tricuspid valves

== ENCOUNTER → 2025-08-02 | Outpatient (CLI) | payer MEDICARE, MEDICAID ==
[~2025-08-02] VITALS: Ht 182.9 cm; Wt 97.6 kg
[~2025-08-02] MED LIST changes: -DIVA-41; +DIVA-41 PO
[2025-08-02 11:49] VITALS: BP 128/78; O2SAT 97
== END ==
LOC: M PAL 10:49
PROVIDERS: ATTEND Physician Assistant
DX: Z51.5 Encounter for palliative care (principal); C43.72 Malignant melanoma of left lower limb, including hip; C77.4 Secondary and unspecified malignant neoplasm of inguinal and lower limb lymph nodes; Z92.21 Personal history of antineoplastic chemotherapy; G81.11 Spastic hemiplegia affecting right dominant side; Z79.891 Long term (current) use of opiate analgesic; Z79.899 Other long term (current) drug therapy; Z79.52 Long term (current) use of systemic steroids

== ENCOUNTER → 2025-08-12 | Outpatient (CLI) | payer MEDICARE, MEDICAID ==
[~2025-08-12] MED LIST changes: +ISOVUE-370 76% 100 ML VIAL As Ordered ONE
== END ==
LOC: M RAD 09:37
PROVIDERS: ATTEND Internal Medicine Medical Oncology
DX: C43.9 Malignant melanoma of skin, unspecified (principal); R59.0 Localized enlarged lymph nodes
CPT/HCPCS: 71260; 74177; Q9967